=== PATIENT | male | born 1955 | race Two or more races ===

== ENCOUNTER 2024-11-08 09:04 | Emergency (ER) | payer OTHER ==
[~2024-11-08] VITALS: Ht 182.9 cm; Wt 99.8 kg
[2024-11-08] MEDS ORDERED: MIDODRINE HCL 5 MG TABLET ONE (09:45)
[2024-11-08] MEDS ORDERED: ASCO500C18 PO (09:46)
[2024-11-08] MEDS ORDERED: ONDA4TAB5 PO (09:46)
[2024-11-08] MEDS ORDERED: OMEP20TA5 PO (09:46)
[2024-11-08] MEDS ORDERED: [UNRECOGNIZED DRUG - OTHER] (09:46)
[2024-11-08] MEDS ORDERED: DIPH25CA83 PO (09:46)
[2024-11-08] MEDS ORDERED: TRAZ150T75 PO (09:46)
[2024-11-08] MEDS ORDERED: MELA3CAP2 PO (09:46)
[2024-11-08] MEDS ORDERED: BISA10EN RC (09:46)
[2024-11-08] MEDS ORDERED: MIDO5TAB5 PO (09:46)
[2024-11-08] MEDS ORDERED: POLY15DR31 OP (09:46)
[2024-11-08] MEDS ORDERED: HYDR-3980 PO (09:46)
[2024-11-08] MEDS ORDERED: LACT1CAP89 PO (09:46)
[2024-11-08] MEDS ORDERED: PRED2.5T PO (09:46)
[2024-11-08] MEDS ORDERED: LATA2.5D15 OP (09:46)
[2024-11-08] MEDS ORDERED: FOLI0.8T2 PO (09:46)
[2024-11-08] MEDS ORDERED: METO50TA16 PO (09:46)
[2024-11-08] MEDS ORDERED: MINE133E RC (09:46)
[2024-11-08 09:47] VITALS: BP 68/46
[2024-11-08] MEDS: MIDODRINE HCL 2.5 MG TABLET PO ONE (09:47)
[2024-11-08] MEDS ORDERED: ALLO100T PO (09:49)
[2024-11-08] MEDS ORDERED: ACET-2154 PO (09:49)
[2024-11-08] MEDS ORDERED: APIX2.5T PO (09:49)
[2024-11-08 10:11] LABS: BASOPHILS # (AUTO) 0.1 K/UL (0.0-0.2); BASOPHILS % (AUTO) 0.5 % (0.0-2.0); EOSINOPHILS # (AUTO) 0.3 K/uL (0.0-0.7); EOSINOPHILS % (AUTO) 2.2 % (0.0-7.0); HEMOGLOBIN 7.6 g/dL (12.5-16.3); LYMPHOCYTES # (AUTO) 0.9 K/uL (0.8-4.8); LYMPHOCYTES % (AUTO) 5.8 % (20.5-51.5); MEAN CORPUSCULAR HEMOGLOBIN 35.2 uug (23.8-33.4); MEAN CORPUSCULAR HGB CONC 33 g/dL (32.5-36.3); MEAN CORPUSCULAR VOLUME 106.7 fL (73.0-96.2); MONOCYTES # (AUTO) 0.9 K/uL (0.1-1.30); MONOCYTES % (AUTO) 5.7 % (0.0-11.0); NEUTROPHILS % (AUTO) 85.8 % (38.5-71.5); PLATELET COUNT (AUTO) 180 K/uL (152-348); WHITE BLOOD COUNT (AUTO) 15.1 K/uL (3.6-10.2)
[2024-11-08 10:19] LABS: CALCIUM 6.7 mg/dL (8.5-10.1); CREATININE 6.5 mg/dL (0.6-1.3); POTASSIUM 4.1 mmol/L (3.5-5.1)
[2024-11-08 10:20] LABS: DIFFERENTIAL COMMENT 1; RED BLOOD CELL COUNT(AUTO) 2.16 MIL/uL (4.06-5.63)
[2024-11-08 10:22] LABS: MAGNESIUM 1.9 mg/dL (1.8-2.4); PHOSPHOROUS 4.9 mg/dL (2.5-4.9)
[2024-11-08] MEDS: IV NORMAL SALINE 500 ML BAG IV ONE (10:29)
[2024-11-08 10:31] LABS: ALBUMIN 3.1 g/dL (3.4-5.0); BILIRUBIN,DIRECT 0.2 mg/dL (0.0-0.2); BILIRUBIN,TOTAL 0.5 mg/dL (0.2-1.0); TOTAL PROTEIN, SERUM 7.7 g/dL (6.4-8.2)
[2024-11-08] MEDS ORDERED: VANCOMYCIN IV 200 ML ONE (10:52)
[2024-11-08] MEDS ORDERED: CEFTRIAXONE /D5W 50ML IVPB **ER PYXIS IV ONE (10:53)
[2024-11-08] MEDS: CEFTRIAXONE 1 G in IV DEXTROSE 5% 50 ML IV ONE (11:01)
[2024-11-08] MEDS: VANCOMYCIN IV 1,000 MG in IV DEXTROSE 5% 250 ML IV ONE (11:35)
[2024-11-08 12:43] VITALS: O2SAT 98
== END 2024-11-08 14:08 | disposition short-term general hospital (02) ==
LOC: ER 09:04
DX: I95.9 Hypotension, unspecified (principal); D72.828 Other elevated white blood cell count; Z79.01 Long term (current) use of anticoagulants; Z79.52 Long term (current) use of systemic steroids; Z79.899 Other long term (current) drug therapy; Z99.2 Dependence on renal dialysis
CPT/HCPCS: 99285; 96365; 71045; 96367; 96366; 80076; 80048; 83880; 83735; 84100; 85025; 84145; 87040; 93005; 83605; J0696; J3370; J7040; A4606; A4663